=== PATIENT | male | born 1975 | race African-American/Black ===

== ENCOUNTER 2018-03-17 12:51 | Emergency (ER) | payer OTHER, MEDICAID | END 2018-03-17 14:55 | disposition home or self-care (01) | LOC: M ED 12:51 | DX: F41.9 Anxiety disorder, unspecified (principal); F17.210 Nicotine dependence, cigarettes, uncomplicated | CPT/HCPCS: 99283 ==

== ENCOUNTER 2018-03-19 10:23 | Emergency (ER) | payer OTHER ==
[2018-03-19 11:03] LABS: BASO # 0.1 10^3/uL (0.0-0.2); BASO % 1.1 % (0.0-1.0); EOS # 0.1 10^3/uL (0.0-0.50); EOS % 1.6 % (0.0-3.0); HEMOGLOBIN 14.5 g/dl (13.5-17.5); IMMATURE GRANULOCYTE % 0.4 % (0-3.0); LYMPH # 1.8 10^3/uL (1.5-4.5); LYMPH % 32.3 % (24.0-44.0); MEAN CORPUSCULAR HEMOGLOBIN 29.1 pg (27.0-33.0); MEAN CORPUSCULAR HGB CONC 34.5 g/dl (32.0-36.5); MEAN CORPUSCULAR VOLUME 84.2 fl (80.0-96.0); MONO # 0.5 10^3/uL (0.0-0.8); NEUTROPHILS # 3.1 10^3/uL (1.8-7.7); NEUTROPHILS % 55.6 % (36.0-66.0); PLATELET COUNT, AUTOMATED 214 10^3/uL (150-450); RED BLOOD COUNT 4.99 10^6/uL (4.30-6.10); RED CELL DISTRIBUTION WIDTH 12.2 % (11.5-14.5); WHITE BLOOD COUNT 5.5 10^3/uL (4.0-10.0)
[2018-03-19 11:12] LABS: INR 1.05; PARTIAL THROMBOPLASTIN TIME 25.8 SECONDS (25.4-37.6); PROTHROMBIN TIME 13.8 SECONDS (12.1-14.4)
[2018-03-19 11:24] LABS: ALBUMIN 3.7 GM/DL (3.2-5.2); ALBUMIN/GLOBULIN RATIO 1.09 (1.00-1.93); ALKALINE PHOSPHATASE 65 U/L (45-117); ALT/SGPT 15 U/L (12-78); ANION GAP 9 MEQ/L (8-16); AST/SGOT 13 U/L (7-37); BILIRUBIN,DIRECT 0.2 MG/DL (0.0-0.2); BILIRUBIN,TOTAL 0.8 MG/DL (0.2-1.0); BLOOD UREA NITROGEN 15 MG/DL (7-18); CALCIUM LEVEL 8.7 MG/DL (8.5-10.1); CARBON DIOXIDE LEVEL 29 MEQ/L (21-32); CHLORIDE LEVEL 107 MEQ/L (98-107); CK-MB VALUE MASS < 1.0 NG/ML (<3.6); CPK CREATINE PHOSPHOKINASE 217 U/L (39-308); CREATININE FOR GFR 1.14 MG/DL (0.70-1.30); GLOMERULAR FILTRATION RATE > 60.0 (>60); GLUCOSE, FASTING 99 MG/DL (70-100); LIPASE 131 U/L (73-393); MB/CK RELATIVE INDEX 0.46 (< OR =4); SODIUM LEVEL 145 MEQ/L (136-145); TOTAL PROTEIN 7.1 GM/DL (6.4-8.2); TROPONIN I < 0.02 NG/ML (< 0.10)
[2018-03-19] MEDS ORDERED: ISOVUE-370 76% 100ML VIAL (Q9967) As Ordered (12:07)
[2018-03-19 17:00] LABS: CK-MB VALUE MASS < 1.0 NG/ML (<3.6); CPK CREATINE PHOSPHOKINASE 207 U/L (39-308); MB/CK RELATIVE INDEX 0.48 (< OR =4); TROPONIN I < 0.02 NG/ML (< 0.10)
== END 2018-03-19 17:58 | disposition home or self-care (01) ==
LOC: M ED 10:23
DX: R07.9 Chest pain, unspecified (principal); R06.02 Shortness of breath; R00.2 Palpitations; Z88.0 Allergy status to penicillin
CPT/HCPCS: Q9967

== ENCOUNTER 2018-03-20 23:14 | Emergency (ER) | payer OTHER ==
[2018-03-21 01:05] LABS: BASO # 0.1 10^3/uL (0.0-0.2); BASO % 0.9 % (0.0-1.0); EOS # 0.2 10^3/uL (0.0-0.50); HEMATOCRIT 40.3 % (42.0-52.0); IMMATURE GRANULOCYTE % 0.2 % (0-3.0); LYMPH # 2.1 10^3/uL (1.5-4.5); LYMPH % 24.7 % (24.0-44.0); MEAN CORPUSCULAR HEMOGLOBIN 29.5 pg (27.0-33.0); MEAN CORPUSCULAR HGB CONC 34.7 g/dl (32.0-36.5); MONO # 0.7 10^3/uL (0.0-0.8); MONO % 8.3 % (0.0-5.0); NEUTROPHILS # 5.5 10^3/uL (1.8-7.7); NEUTROPHILS % 63.9 % (36.0-66.0); PLATELET COUNT, AUTOMATED 212 10^3/uL (150-450); RED BLOOD COUNT 4.74 10^6/uL (4.30-6.10); RED CELL DISTRIBUTION WIDTH 12.4 % (11.5-14.5); WHITE BLOOD COUNT 8.7 10^3/uL (4.0-10.0)
[2018-03-21 01:32] LABS: ANION GAP 8 MEQ/L (8-16); BLOOD UREA NITROGEN 12 MG/DL (7-18); CALCIUM LEVEL 8.2 MG/DL (8.5-10.1); CARBON DIOXIDE LEVEL 26 MEQ/L (21-32); CHLORIDE LEVEL 110 MEQ/L (98-107); CPK CREATINE PHOSPHOKINASE 162 U/L (39-308); CREATININE FOR GFR 0.81 MG/DL (0.70-1.30); GLOMERULAR FILTRATION RATE > 60.0 (>60); GLUCOSE, FASTING 99 MG/DL (70-100); MAGNESIUM LEVEL 1.6 MG/DL (1.8-2.4); POTASSIUM SERUM 3.7 MEQ/L (3.5-5.1); SODIUM LEVEL 144 MEQ/L (136-145); TROPONIN I < 0.02 NG/ML (< 0.10)
[2018-03-21 01:37] LABS: CK-MB VALUE MASS < 1.0 NG/ML (<3.6); MB/CK RELATIVE INDEX 0.61 (< OR =4)
[2018-03-21] MEDS: MAGNESIUM OXIDE 400 MG TAB (MAG-OX) PO (02:05)
== END 2018-03-21 02:28 | disposition home or self-care (01) ==
LOC: M ED 23:14
DX: R55 Syncope and collapse (principal); R94.31 Abnormal electrocardiogram [ECG] [EKG]; F41.9 Anxiety disorder, unspecified; F33.9 Major depressive disorder, recurrent, unspecified; Z88.0 Allergy status to penicillin; Z79.82 Long term (current) use of aspirin; Z79.2 Long term (current) use of antibiotics
CPT/HCPCS: 71046

== ENCOUNTER 2018-07-21 06:59 | Emergency (ER) | payer OTHER ==
[~2018-07-21] VITALS: Ht 190.5 cm; Wt 81.8 kg
[~2018-07-21 06:59] MED LIST: AMOX875T2 PO; BAYE325T12 PO
[2018-07-21] MEDS ORDERED: OMEP40CA2 PO (07:15)
[2018-07-21] MEDS ORDERED: SIME180C PO (07:15)
[2018-07-21 07:34] LABS: BASO # 0.1 10^3/uL (0.0-0.2); BASO % 1.3 % (0.0-1.0); EOS # 0.4 10^3/uL (0.0-0.50); EOS % 5.1 % (0.0-3.0); HEMATOCRIT 41.6 % (42.0-52.0); HEMOGLOBIN 14.3 g/dl (13.5-17.5); LYMPH # 2.5 10^3/uL (1.5-4.5); MEAN CORPUSCULAR HEMOGLOBIN 28.8 pg (27.0-33.0); MEAN CORPUSCULAR HGB CONC 34.4 g/dl (32.0-36.5); MEAN CORPUSCULAR VOLUME 83.7 fl (80.0-96.0); MONO # 0.6 10^3/uL (0.0-0.8); MONO % 9.3 % (0.0-5.0); NEUTROPHILS # 3.2 10^3/uL (1.8-7.7); PLATELET COUNT, AUTOMATED 224 10^3/uL (150-450); RED BLOOD COUNT 4.97 10^6/uL (4.30-6.10); WHITE BLOOD COUNT 6.9 10^3/uL (4.0-10.0)
--- NOTE | 2018-07-21 07:38 | REP ---
Clinical: Acute chest pain . Comparison: 03/21/2018 . Findings: The mediastinum and cardiac silhouette are stable and within normal limits for portable technique. The lung sheppard are clear without acute consolidation, effusion, or pneumothorax. Skeletal structures are intact. Impression: No acute cardiopulmonary process appreciated. Electronically Signed by Stevan Whipple MD 07/21/2018 07:31 A
[2018-07-21 07:45] LABS: INR 0.95; PROTHROMBIN TIME 12.7 SECONDS (12.1-14.4)
[2018-07-21 08:09] LABS: ALBUMIN 3.5 GM/DL (3.2-5.2); ALT/SGPT 25 U/L (12-78); BILIRUBIN,DIRECT 0.1 MG/DL (0.0-0.2); BILIRUBIN,TOTAL 0.4 MG/DL (0.2-1.0); BLOOD UREA NITROGEN 16 MG/DL (7-18); CALCIUM LEVEL 8.6 MG/DL (8.5-10.1); CARBON DIOXIDE LEVEL 27 MEQ/L (21-32); CHLORIDE LEVEL 108 MEQ/L (98-107); CPK CREATINE PHOSPHOKINASE 201 U/L (39-308); CREATININE FOR GFR 0.97 MG/DL (0.70-1.30); GLOMERULAR FILTRATION RATE > 60.0 (>60); GLUCOSE, FASTING 95 MG/DL (70-100); LIPASE 221 U/L (73-393); NT-PRO BNP 7 PG/ML (<125); POTASSIUM SERUM 4.3 MEQ/L (3.5-5.1); SODIUM LEVEL 140 MEQ/L (136-145); TOTAL PROTEIN 6.7 GM/DL (6.4-8.2); TROPONIN I < 0.02 NG/ML (< 0.10)
--- NOTE | 2018-07-21 08:12 | ECGEPIP ---
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
[2018-07-21] MEDS ORDERED: ISOVUE-370 76% 100ML VIAL (Q9967) As Ordered ONE (08:47)
--- NOTE | 2018-07-21 09:23 | REP ---
Clinical: Shortness of breath and chest pain. Technique: Axial contrast enhanced images from the thoracic inlet to the upper abdomen using 100 ml Isovue 370 intravenous contrast material with multiplanar re-formations. Findings: Satisfactory enhancement of the pulmonary vasculature is achieved and no filling defects are identified to suggest pulmonary embolus. Further evaluation of the mediastinum demonstrates normal thoracic aorta, heart and pericardium. The bilateral lung sheppard are well aerated and clear without consolidation pleural effusion or pneumothorax. Tracheobronchial tree is patent. No nodule or mass lesion is identified. No adenopathy noted. Surrounding musculoskeletal structures intact Impression: No evidence for pulmonary embolus. No acute mediastinal or pleural parenchymal process. Electronically Signed by Stevan Whipple MD 07/21/2018 09:14 A
--- NOTE | 2018-07-21 09:24 | REP ---
Clinical: Left-sided abdominal pain. Technique: Axial contrast enhanced images from the lung bases to the pubic symphysis with coronal and sagittal re-formations using 100 ml Isovue 370 intravenous contrast material. Findings: Lung bases are clear. Liver, spleen, pancreas, gallbladder, bilateral adrenal glands and kidneys are normal. The enteric system is without obstruction or acute inflammatory process. Normal terminal ileum and appendix identified in the right lower quadrant. Few scattered sigmoid diverticula suggested without acute diverticulitis. Pelvis demonstrates normal bladder and age appropriate prostate/seminal vesicles. No ascites. No free air. No adenopathy. Abdominal aorta and vasculature grossly normal. Musculoskeletal structures without focal osseous abnormality. Impression: No acute abdominopelvic pathology appreciated. Electronically Signed by Stevan Whipple MD 07/21/2018 09:16 A
[2018-07-21] MEDS ORDERED: GI COCKTAIL 50ML BTL(HYOSCYAMINE/MAALOX/LIDOCAINE VISCOUS)(1:3:1) PO ONE (09:45)
[2018-07-21] MEDS ORDERED: SUCR1SS PO (13:54)
[2018-07-21] MEDS ORDERED: ASPIRIN 81 MG CHEW TABLET PO ONE (14:00)
[2018-07-21 14:23] LABS: CPK CREATINE PHOSPHOKINASE 183 U/L (39-308); TROPONIN I < 0.02 NG/ML (< 0.10)
[2018-07-21 14:35] VITALS: BP 126/67
--- NOTE | 2018-07-22 16:46 | ECGEPIP ---
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
== END 2018-07-21 14:59 | disposition home or self-care (01) ==
LOC: M ED 06:59
DX: K21.9 Gastro-esophageal reflux disease without esophagitis (principal); R07.89 Other chest pain
CPT/HCPCS: 36415; 71045; 71275; 74177; 80048; 80076; 82550; 82553; 83690; 83880; 84443; 85025; 85610; 93005; 93041; 94760; 99285; Q9967

== ENCOUNTER 2019-03-05 20:57 | Emergency (ER) | payer OTHER ==
[~2019-03-05] VITALS: Ht 190.5 cm; Wt 86.4 kg
[~2019-03-05 20:57] MED LIST changes: +OMEP40CA2 PO; +SIME180C PO; +SUCR1SS PO
[2019-03-05 21:27] LABS: BASO # 0.1 10^3/uL (0.0-0.2); BASO % 0.8 % (0.0-1.0); EOS % 0.5 % (0.0-3.0); HEMATOCRIT 40.7 % (42.0-52.0); HEMOGLOBIN 14.2 g/dl (13.5-17.5); LYMPH # 1.2 10^3/uL (1.5-4.5); LYMPH % 15.5 % (24.0-44.0); MEAN CORPUSCULAR HEMOGLOBIN 29.3 pg (27.0-33.0); MEAN CORPUSCULAR HGB CONC 34.9 g/dl (32.0-36.5); MEAN CORPUSCULAR VOLUME 84.1 fl (80.0-96.0); MONO # 0.6 10^3/uL (0.0-0.8); NEUTROPHILS % 75.8 % (36.0-66.0); PLATELET COUNT, AUTOMATED 213 10^3/uL (150-450); RED BLOOD COUNT 4.84 10^6/uL (4.30-6.10); WHITE BLOOD COUNT 7.9 10^3/uL (4.0-10.0)
[2019-03-05] MEDS ORDERED: PROMETHAZINE INJ 25 MG/ML VIAL (J2550) IV ONE (21:30)
[2019-03-05 21:42] LABS: INR 1.06; PROTHROMBIN TIME 13.5 SECONDS (11.8-14.0)
[2019-03-05 21:43] LABS: PARTIAL THROMBOPLASTIN TIME 29.7 SECONDS (25.0-38.4)
[2019-03-05 21:46] LABS: D-DIMER QUANT 439.55 ng/ml (<500)
[2019-03-05 21:59] LABS: ALBUMIN 3.7 GM/DL (3.2-5.2); ALT/SGPT 19 U/L (12-78); BILIRUBIN,DIRECT 0.2 MG/DL (0.0-0.2); BILIRUBIN,TOTAL 0.5 MG/DL (0.2-1.0); BLOOD UREA NITROGEN 9 MG/DL (7-18); C REACTIVE PROTEIN QUANTITATIV 0.66 MG/DL (0.00-0.30); CALCIUM LEVEL 8.7 MG/DL (8.5-10.1); CARBON DIOXIDE LEVEL 27 MEQ/L (21-32); CHLORIDE LEVEL 108 MEQ/L (98-107); CK-MB VALUE MASS 1.2 NG/ML (<3.6); CPK CREATINE PHOSPHOKINASE 343 U/L (39-308); CREATININE FOR GFR 0.95 MG/DL (0.70-1.30); FREE T4 1.31 NG/DL (0.76-1.46); GLOMERULAR FILTRATION RATE > 60.0 (>60); GLUCOSE, FASTING 114 MG/DL (70-100); LIPASE 101 U/L (73-393); MAGNESIUM LEVEL 1.9 MG/DL (1.8-2.4); MB/CK RELATIVE INDEX 0.35 (< OR =4); NT-PRO BNP 19 PG/ML (<125); POTASSIUM SERUM 3.4 MEQ/L (3.5-5.1); SODIUM LEVEL 143 MEQ/L (136-145); THYROID STIMULATING HORMONE 0.681 uIU/ML (0.358-3.740); TOTAL PROTEIN 6.7 GM/DL (6.4-8.2); TROPONIN I < 0.02 NG/ML (< 0.10)
[2019-03-05] MEDS ORDERED: ISOVUE-370 76% 100ML VIAL (Q9967) As Ordered ONE (22:50)
--- NOTE | 2019-03-06 | REPVR ---
EXAM: CT Abdomen and Pelvis With Contrast EXAM DATE/TIME: 03/05/2019 11:15 PM CLINICAL HISTORY: 44 years old, male; Abdominal pain; Generalized; Additional info: Pain, distended TECHNIQUE: Imaging protocol: Axial computed tomography images of the abdomen and pelvis with intravenous contrast. Coronal and sagittal reformatted images were created and reviewed. Radiation optimization: All CT scans at this facility use at least one of these dose optimization techniques: automated exposure control; mA and/or kV adjustment per patient size (includes targeted exams where dose is matched to clinical indication); or iterative reconstruction. Contrast material: ISOVUE 370;Contrast volume: 100 ml;Contrast route: IV; COMPARISON: CT ABD PELVIS WITH CONTRAST 07/21/2018 8:46 AM FINDINGS: Liver: Normal. No mass. Gallbladder and bile ducts: Normal. No calcified stones. No ductal dilation. Pancreas: Normal. No ductal dilation. Spleen: Normal. No splenomegaly. Adrenals: Normal. No mass. Kidneys and ureters: Normal. No hydronephrosis. Stomach and bowel: Normal. No obstruction. No mucosal thickening. Appendix: No evidence of appendicitis. Intraperitoneal space: Normal. No free air. No significant fluid collection. Vasculature: Mild atherosclerosis. Lymph nodes: Normal. No enlarged lymph nodes. Bladder: Unremarkable as visualized. Reproductive: Unremarkable as visualized. Bones/joints: No acute fracture. No dislocation. Soft tissues: Multiple linear structures in the scrotum may represent varicocele. IMPRESSION: Multiple linear structures in the scrotum may represent varicocele. No acute findings. Electronically signed by: Blanca Aaron On 03/06/2019 00:00:34 AM
[2019-03-06] MEDS ORDERED: SIME180C PO (00:42)
[2019-03-06] MEDS ORDERED: OMEP40CA2 PO (00:42)
[2019-03-06 00:45] VITALS: BP 110/68
--- NOTE | 2019-03-06 05:45 | ECGEPIP ---
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
--- NOTE | 2019-03-07 09:34 | REP ---
AP PORTABLE CHEST: 03/05/2019. Comparison: 07/21/2018. Clinical history: Chest pain. Findings: Lungs are well inflated and without infiltrate, effusion, atelectasis or mass. The heart, mediastinal and hilar contours are normal. The aorta and airway are intact. No widening of the mediastinum. Visualized bones grossly intact. Impression: 1. Negative AP portable chest. Stable from prior study. Electronically Signed by Shan Perry MD 03/07/2019 08:16 P
== END 2019-03-06 00:52 | disposition home or self-care (01) ==
LOC: M ED 20:57
DX: K21.9 Gastro-esophageal reflux disease without esophagitis (principal); I45.10 Unspecified right bundle-branch block; Z79.899 Other long term (current) drug therapy; Z88.0 Allergy status to penicillin; F17.210 Nicotine dependence, cigarettes, uncomplicated
CPT/HCPCS: 71045; 74177; 80048; 80076; 81001; 82550; 82553; 83605; 83690; 83735; 83880; 84439; 84443; 85025; 85379; 85610; 85730; 86140; 93005; 93041; 94760; 96374; 99285; Q9967

== ENCOUNTER 2019-06-26 13:04 | Emergency (ER) | payer OTHER ==
[~2019-06-26] VITALS: Ht 190.5 cm; Wt 84.1 kg
[~2019-06-26 13:04] MED LIST changes: -OMEP40CA2 PO; +OMEP40CA97 PO
[2019-06-26] MEDS ORDERED: ACETAMINOPHEN 500 MG TAB PO ONE (13:30)
[2019-06-26] MEDS ORDERED: ZITHTAB PO (13:30)
--- NOTE | 2019-06-26 14:38 | REP ---
SOFT-TISSUE NECK: 06/26/2019. CLINICAL HISTORY: Sore throat. FINDINGS: No prior studies. Two lateral views and a frontal projection show nasopharynx, hypopharynx, and oropharynx intact. Epiglottis and its folds are unremarkable and sharply defined. The larynx and subglottic trachea are intact. I see no prevertebral swelling. Calcifications of the anterior longitudinal ligament at the C5-6 level are noted. The hyoid bone and thyroid cartilage grossly unremarkable. AP view shows no torticollis. Upper thoracic vertebral levels and ribs are grossly intact. IMPRESSION: 1. The airway from nasopharynx to the subglottic trachea showed no significant stenosis, mass effect, or other acute finding. The larynx and epiglottis are also grossly intact on this study. Negative exam for acute radiographic finding. Electronically Signed by Shan Perry MD 06/26/2019 07:59 P
[2019-06-26 14:42] VITALS: BP 120/82
== END 2019-06-26 14:45 | disposition home or self-care (01) ==
LOC: M ED 13:04
DX: J02.0 Streptococcal pharyngitis (principal); F17.200 Nicotine dependence, unspecified, uncomplicated; Z88.0 Allergy status to penicillin

== ENCOUNTER 2020-11-27 11:15 | Emergency (ER) | payer OTHER ==
[~2020-11-27 11:15] MED LIST changes: -SIME180C PO; +SIME180C25 PO; +ZITHTAB PO
[2020-11-27] MEDS ORDERED: NS 1,000 ML IV ONE (11:45)
[2020-11-27] MEDS ORDERED: KETOROLAC 30 MG/ML 1ML VIAL IV ONE (11:45)
[2020-11-27] MEDS ORDERED: PANTOPRAZOLE 40MG VIAL (C9113 PER 1) IV ONE (11:45)
[2020-11-27] MEDS ORDERED: ONDANSETRON 4MG/2ML VIAL IV ONE (11:45)
[2020-11-27 12:05] LABS: BASO # 0.1 10^3/uL (0.0-0.2); BASO % 0.3 % (0.0-1.0); HEMATOCRIT 43.6 % (42.0-52.0); LYMPH # 1.8 10^3/uL (1.5-5.0); LYMPH % 10.4 % (24.0-44.0); MEAN CORPUSCULAR HEMOGLOBIN 28.7 pg (27.0-33.0); MEAN CORPUSCULAR HGB CONC 34.4 g/dl (32.0-36.5); MEAN CORPUSCULAR VOLUME 83.5 fl (80.0-96.0); MONO % 11.5 % (2.0-8.0); NEUTROPHILS # 13.3 10^3/uL (1.5-8.5); NEUTROPHILS % 77.3 % (36.0-66.0); PLATELET COUNT, AUTOMATED 227 10^3/uL (150-450); RED BLOOD COUNT 5.22 10^6/uL (4.30-6.10)
[2020-11-27] MEDS ORDERED: ACETAMINOPHEN 325 MG TAB PO ONE (12:05)
[2020-11-27 12:24] LABS: WHITE BLOOD COUNT 17.2 10^3/uL (4.0-10.0)
[2020-11-27 12:31] LABS: ALBUMIN 3.6 GM/DL (3.2-5.2); ALT/SGPT 21 U/L (12-78); BILIRUBIN,DIRECT 0.3 MG/DL (0.0-0.2); BILIRUBIN,TOTAL 0.9 MG/DL (0.2-1.0); BLOOD UREA NITROGEN 15 MG/DL (7-18); CARBON DIOXIDE LEVEL 29 MEQ/L (21-32); CHLORIDE LEVEL 101 MEQ/L (98-107); CREATININE FOR GFR 1.24 MG/DL (0.70-1.30); GLOMERULAR FILTRATION RATE > 60.0 (>60); GLUCOSE, FASTING 99 MG/DL (70-100); LIPASE 68 U/L (73-393); POTASSIUM SERUM 4.1 MEQ/L (3.5-5.1); SODIUM LEVEL 136 MEQ/L (136-145); TOTAL PROTEIN 7.6 GM/DL (6.4-8.2)
[2020-11-27] MEDS ORDERED: ISOVUE-370 76% 100ML VIAL As Ordered ONE (13:04)
--- NOTE | 2020-11-27 14:10 | REP ---
INDICATION: rlq pain. COMPARISON: 03/05/2019 TECHNIQUE: Standard helical technique after the intravenous administration of 100 cc Isovue 370. No oral bowel preparatory contrast was administered prior to the exam. FINDINGS: The lung bases are clear. The liver, gallbladder, spleen, pancreas, adrenal glands, and kidneys are within normal limits. The abdominal aorta and para-regions are within normal limits. Limited evaluation of the bowel loops and the mesenteries show no abnormalities. The appendix is well visualized and is within normal limits. There is no free fluid or free air. There is no mass or adenopathy. Bone window technique throughout the exam shows no significant change in appearance of the osseous structures. Chronic sacroiliac joint changes are again seen bilaterally with anterior fusion. IMPRESSION: 1. There is no evidence of acute disease. 2. Chronic sacroiliac joint changes as described above. This should be correlated clinically as certain types of chronic inflammatory bowel disease can be related to the finding. <Electronically signed by Chriss Longoria > 11/27/20 0060
[2020-11-27 15:23] LABS: RSV AMPLIFICATION NEGATIVE (NEGATIVE)
[2020-11-27 17:01] VITALS: BP 172/76
[2020-11-27] MEDS ORDERED: CIPROFLOXACIN 250MG TAB PO ONE (17:55)
[2020-11-27] MEDS ORDERED: CIPR-249 PO (18:49)
[2020-11-27] MEDS ORDERED: FLOM0.4C39 PO (18:50)
[2020-11-27] MEDS ORDERED: ZOFR4TAB16 PO (18:54)
--- NOTE | 2020-11-29 19:41 | ED PDOC ---
Post-Departure Follow-Up Contacted patient to see how he was feeling and to make sure he had the informat ion for the information to schedule his follow ups with gastroenterology and urology. Patient stated he was feeling much better. Advised him to keep taking his medications as prescribed and schedule his follow up appointments. EJ DENT PA-C November 29, 2020 19:41
== END 2020-11-27 18:30 | disposition home or self-care (01) ==
LOC: M ED 11:15 → EDBD 11:15 → M ED 18:30
DX: N30.00 Acute cystitis without hematuria (principal); F50.9 Eating disorder, unspecified; R11.2 Nausea with vomiting, unspecified; M53.3 Sacrococcygeal disorders, not elsewhere classified; F41.9 Anxiety disorder, unspecified; F32.9 Major depressive disorder, single episode, unspecified; F17.290 Nicotine dependence, other tobacco product, uncomplicated; F12.10 Cannabis abuse, uncomplicated; Z88.0 Allergy status to penicillin
CPT/HCPCS: 74177; 80048; 80076; 81001; 83690; 85025; 87088; 87186; 87490; 87590; 87631; 96361; 96374; 96375; 99285; C9113; J1885; J2405; Q9967

== ENCOUNTER 2021-01-14 13:34 | Emergency (ER) | payer OTHER ==
[~2021-01-14] VITALS: Ht 188 cm; Wt 85.9 kg
[~2021-01-14 13:34] MED LIST changes: +CIPR-249 PO; +FLOM0.4C39 PO; +OMEP40CA4 PO; -OMEP40CA97 PO; +ZOFR4TAB16 PO
[2021-01-14] MEDS ORDERED: GI COCKTAIL 50ML BTL(HYOSCYAMINE/MAALOX/LIDOCAINE VISCOUS)(1:3:1) PO ONE (14:30)
[2021-01-14 14:59] LABS: BASO # 0.1 10^3/uL (0.0-0.2); BASO % 0.8 % (0.0-1.0); EOS # 0.2 10^3/uL (0.0-0.5); EOS % 2.9 % (0.0-3.0); HEMATOCRIT 41.8 % (42.0-52.0); HEMOGLOBIN 13.9 g/dl (13.5-17.5); LYMPH # 2.1 10^3/uL (1.5-5.0); LYMPH % 31.5 % (24.0-44.0); MEAN CORPUSCULAR HEMOGLOBIN 28.2 pg (27.0-33.0); MEAN CORPUSCULAR HGB CONC 33.3 g/dl (32.0-36.5); MEAN CORPUSCULAR VOLUME 84.8 fl (80.0-96.0); MONO # 0.6 10^3/uL (0.0-0.8); MONO % 9.4 % (2.0-8.0); NEUTROPHILS # 3.6 10^3/uL (1.5-8.5); NEUTROPHILS % 54.8 % (36.0-66.0); PLATELET COUNT, AUTOMATED 212 10^3/uL (150-450); RED BLOOD COUNT 4.93 10^6/uL (4.30-6.10); WHITE BLOOD COUNT 6.6 10^3/uL (4.0-10.0)
[2021-01-14 15:27] LABS: ALBUMIN 3.4 GM/DL (3.2-5.2); ALT/SGPT 35 U/L (12-78); BILIRUBIN,DIRECT 0.1 MG/DL (0.0-0.2); BILIRUBIN,TOTAL 0.5 MG/DL (0.2-1.0); BLOOD UREA NITROGEN 12 MG/DL (7-18); CALCIUM LEVEL 8.7 MG/DL (8.5-10.1); CARBON DIOXIDE LEVEL 29 MEQ/L (21-32); CHLORIDE LEVEL 109 MEQ/L (98-107); CK-MB VALUE MASS < 1.0 NG/ML (<3.6); CPK CREATINE PHOSPHOKINASE 174 U/L (39-308); CREATININE FOR GFR 0.91 MG/DL (0.70-1.30); GLOMERULAR FILTRATION RATE > 60.0 (>60); GLUCOSE, FASTING 88 MG/DL (70-100); LIPASE 133 U/L (73-393); MB/CK RELATIVE INDEX 0.57 (< OR =4); POTASSIUM SERUM 4.2 MEQ/L (3.5-5.1); SODIUM LEVEL 139 MEQ/L (136-145); TOTAL PROTEIN 6.8 GM/DL (6.4-8.2); TROPONIN I < 0.02 NG/ML (< 0.10)
[2021-01-14] MEDS ORDERED: PROT1TAB2 PO (15:29)
[2021-01-14 15:53] VITALS: BP 152/86
--- NOTE | 2021-01-14 21:16 | ECGEPIP ---
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
== END 2021-01-14 16:03 | disposition home or self-care (01) ==
LOC: EDBD 13:34 → M ED 13:34
DX: K21.9 Gastro-esophageal reflux disease without esophagitis (principal); R00.1 Bradycardia, unspecified; I45.19 Other right bundle-branch block; Z88.0 Allergy status to penicillin

== ENCOUNTER 2021-12-09 07:53 | Emergency (ER) | payer OTHER ==
[~2021-12-09] VITALS: Ht 190.5 cm; Wt 77.3 kg
[~2021-12-09 07:53] MED LIST changes: +PROT1TAB2 PO
[2021-12-09 08:29] LABS: BASO # 0.1 10^3/uL (0.0-0.2); BASO % 0.9 % (0.0-1.0); EOS # 0.2 10^3/uL (0.0-0.5); EOS % 2.8 % (0.0-3.0); HEMATOCRIT 42.2 % (42.0-52.0); HEMOGLOBIN 14.5 g/dl (13.5-17.5); LYMPH # 2.2 10^3/uL (1.5-5.0); LYMPH % 29.2 % (24.0-44.0); MEAN CORPUSCULAR HEMOGLOBIN 28.6 pg (27.0-33.0); MEAN CORPUSCULAR HGB CONC 34.4 g/dl (32.0-36.5); MEAN CORPUSCULAR VOLUME 83.2 fl (80.0-96.0); MONO # 0.7 10^3/uL (0.0-0.8); MONO % 9.5 % (2.0-8.0); NEUTROPHILS # 4.3 10^3/uL (1.5-8.5); NEUTROPHILS % 57.2 % (36.0-66.0); PLATELET COUNT, AUTOMATED 199 10^3/uL (150-450); RED BLOOD COUNT 5.07 10^6/uL (4.30-6.10); WHITE BLOOD COUNT 7.6 10^3/uL (4.0-10.0)
[2021-12-09 09:11] LABS: CK-MB VALUE MASS 1.4 NG/ML (<3.6); MB/CK RELATIVE INDEX 0.51 (< OR =4)
[2021-12-09 09:20] LABS: ALBUMIN 3.6 GM/DL (3.2-5.2); ALT/SGPT 26 U/L (12-78); BILIRUBIN,DIRECT 0.1 MG/DL (0.0-0.2); BILIRUBIN,TOTAL 0.4 MG/DL (0.2-1.0); BLOOD UREA NITROGEN 15 MG/DL (7-18); CALCIUM LEVEL 9.4 MG/DL (8.5-10.1); CARBON DIOXIDE LEVEL 28 MEQ/L (21-32); CHLORIDE LEVEL 109 MEQ/L (98-107); CREATININE FOR GFR 0.98 MG/DL (0.70-1.30); GLOMERULAR FILTRATION RATE > 60.0 (>60); GLUCOSE, FASTING 100 MG/DL (70-100); LIPASE 182 U/L (73-393); NT-PRO BNP 17 PG/ML (<125); POTASSIUM SERUM 4.3 MEQ/L (3.5-5.1); SODIUM LEVEL 143 MEQ/L (136-145)
[2021-12-09 09:57] LABS: CK-MB VALUE MASS 1.2 NG/ML (<3.6); MB/CK RELATIVE INDEX 0.46 (< OR =4)
[2021-12-09 10:00] VITALS: BP 139/73
== END 2021-12-09 10:20 | disposition home or self-care (01) ==
LOC: M ED 07:53 → EDBD 07:53 → M ED 10:20
DX: R07.9 Chest pain, unspecified (principal); I45.19 Other right bundle-branch block; X50.0XXA Overexertion from strenuous movement or load, initial encounter; Y92.9 Unspecified place or not applicable; Y93.89 Activity, other specified; Y99.9 Unspecified external cause status; F17.200 Nicotine dependence, unspecified, uncomplicated; Z82.49 Family history of ischemic heart disease and other diseases of the circulatory system; Z79.899 Other long term (current) drug therapy; Z88.0 Allergy status to penicillin

== ENCOUNTER 2023-03-17 12:41 | Emergency (ER) | payer OTHER ==
[2023-03-17] MEDS ORDERED: NITROGLYCERIN 0.4MG SUBL TABLET SL PRN (13:15)
[2023-03-17 13:16] LABS: BASO # 0.1 10^3/uL (0.0-0.2); BASO % 1.1 % (0.0-1.0); EOS # 0.2 10^3/uL (0.0-0.5); EOS % 2.6 % (0.0-3.0); HEMATOCRIT 43.8 % (42.0-52.0); LYMPH # 3.2 10^3/uL (1.5-5.0); LYMPH % 39.8 % (24.0-44.0); MEAN CORPUSCULAR HEMOGLOBIN 28.2 pg (27.0-33.0); MEAN CORPUSCULAR HGB CONC 34.2 g/dl (32.0-36.5); MEAN CORPUSCULAR VOLUME 82.5 fl (80.0-96.0); MONO # 0.7 10^3/uL (0.0-0.8); MONO % 9.2 % (2.0-8.0); NEUTROPHILS # 3.7 10^3/uL (1.5-8.5); NEUTROPHILS % 46.9 % (36.0-66.0); PLATELET COUNT, AUTOMATED 227 10^3/uL (150-450); RED BLOOD COUNT 5.31 10^6/uL (4.30-6.10)
[2023-03-17 13:44] LABS: LIPASE 30 U/L (12-53)
[2023-03-17 13:45] LABS: ALBUMIN 3.7 G/DL (3.2-5.2); ALKALINE PHOSPHATASE 81 U/L (46-116); ALT/SGPT 17 U/L (7.0-40); AST/SGOT 16 U/L (<34); BILIRUBIN,DIRECT 0.5 MG/DL (<0.4); BILIRUBIN,TOTAL 1.2 MG/DL (0.3-1.2); BLOOD UREA NITROGEN 17 MG/DL (9-23); CARBON DIOXIDE LEVEL 27 MMOL/L (20-31); CHLORIDE LEVEL 108 MMOL/L (98-107); CREATININE FOR GFR 0.99 MG/DL (0.70-1.30); GLOMERULAR FILTRATION RATE > 60.0 (>56); GLUCOSE, FASTING 90 MG/DL (60-100); POTASSIUM SERUM 4.2 MMOL/L (3.5-5.1); SODIUM LEVEL 141 MMOL/L (136-145); TOTAL PROTEIN 6.9 G/DL (5.7-8.2)
[2023-03-17 13:46] LABS: THYROID STIMULATING HORMONE 1.701 uIU/ML (0.55-4.78)
[2023-03-17 13:47] LABS: FREE T4 1.46 NG/DL (0.89-1.76)
[2023-03-17 13:51] LABS: CPK CREATINE PHOSPHOKINASE 301 U/L (46-171); MB/CK RELATIVE INDEX 0.33 (< OR =4)
[2023-03-17 15:12] LABS: CK-MB VALUE MASS < 1.0 NG/ML (<3.6)
[2023-03-17 15:13] LABS: CPK CREATINE PHOSPHOKINASE 288 U/L (46-171); MB/CK RELATIVE INDEX 0.34 (< OR =4)
[2023-03-17 18:04] LABS: CK-MB VALUE MASS < 1.0 NG/ML (<3.6)
[2023-03-17 18:06] LABS: CPK CREATINE PHOSPHOKINASE 285 U/L (46-171); MB/CK RELATIVE INDEX 0.35 (< OR =4)
[2023-03-17 18:44] VITALS: BP 132/71; TEMP 96.8; O2SAT 100
== END 2023-03-17 19:02 | disposition home or self-care (01) ==
LOC: M ED 12:41 → EDBD 12:41 → M ED 19:02
DX: R07.89 Other chest pain (principal); I51.9 Heart disease, unspecified; K21.9 Gastro-esophageal reflux disease without esophagitis; Z79.899 Other long term (current) drug therapy; Z88.0 Allergy status to penicillin